=== PATIENT | male | born 1980 | race Hispanic/Latino ===

== ENCOUNTER 2024-06-05 19:13 | Observation (INO) | payer SELFPAY ==
[~2024-06-05] VITALS: Ht 180.3 cm; Wt 101.3 kg
[2024-06-05 19:22] VITALS: TEMP 98.6
[2024-06-05 19:46] LABS: BASOPHILS % 0.3 % (0.0-1.0); EOSINOPHILS # (AUTO) 0.3 (0.0-0.4); EOSINOPHILS % 3.9 % (0.0-6.0); HEMATOCRIT 43.4 % (38.2-49.6); HEMOGLOBIN 14.7 g/dL (14.0-18.0); LYMPHOCYTES # (AUTO) 1.9 (1.0-3.2); LYMPHOCYTES % 25.9 % (18.0-39.1); MEAN CORPUSCULAR HEMOGLOBIN 31.1 pg (28-32); MEAN CORPUSCULAR HGB CONC 33.9 g/dL (31-35); MEAN CORPUSCULAR VOLUME 91.9 fL (81-99); MONOCYTES # (AUTO) 0.5 (0.2-0.8); MONOCYTES % 6.1 % (4.4-11.3); NEUTROPHILS # (AUTO) 4.7 (2.1-6.9); NEUTROPHILS % 63.3 % (38.7-80.0); PLATELET COUNT 288 x10e3/uL (140-360); RED BLOOD COUNT 4.72 x10e6/uL (4.3-5.7); RED CELL DISTRIBUTION WIDTH 11.6 % (11.7-14.4); WHITE BLOOD COUNT 7.38 x10e3/uL (4.8-10.8)
[2024-06-05] MEDS: SODIUM CHLORIDE 0.9% 1000ML 1,000 ML IV ONE ×2 (19:47→20:18)
[2024-06-05 20:00] VITALS: BP 120/87; O2SAT 96
[2024-06-05 20:00] LABS: ALBUMIN 3.7 g/dL (3.5-5.0); ALBUMIN/GLOBULIN RATIO 0.9 (0.8-2.0); ANION GAP 16.3 mmol/L (8-16); BILIRUBIN,TOTAL 0.4 mg/dL (0.2-1.2); CALCIUM 9.2 mg/dL (8.4-10.2); CREATININE, SERUM 1.08 mg/dL (0.72-1.25); POTASSIUM 4.3 mmol/L (3.5-5.1)
[2024-06-05] MEDS ORDERED: IOPAMIDOL 370 MG/ML 100 ML INFUS..BTL INJ ONE (20:14)
[2024-06-05] MEDS ORDERED: SODIUM CHLORIDE 0.9% 1000ML 1,000 ML ONE (20:20)
[2024-06-05 20:50] LABS: BILIRUBIN,URINE NEGATIVE (NEGATIVE); CLARITY,URINE CLEAR (CLEAR); COLOR,URINE YELLOW (YELLOW); GLUCOSE, URINE 500 (NEGATIVE); KETONES,URINE 1+ (NEGATIVE); LEUKOCYTE ESTERASE ,URINE NEGATIVE (NEGATIVE); NITRITE,URINE NEGATIVE (NEGATIVE); PH,URINE 5.5 (5 - 7); PROTEIN,URINE DIPSTICK NEGATIVE (NEGATIVE); URINE UROBILINOGEN 0.2 mg/dL (0.2 - 1)
[2024-06-05 21:00] VITALS: PULSE 82; RESP 18
[2024-06-05] MEDS ORDERED: ONDANSETRON HCL INJ 2MG/ML 2ML 2 MG/ML VIAL IV PRN (21:30)
[2024-06-05] MEDS ORDERED: SODIUM CHLORIDE FLUSH 10 ML SYR INJ PRN (21:30)
[2024-06-05] MEDS: INSULIN REGULAR, HUMAN 100 UNIT/1 ML SQ ONE (21:39)
[2024-06-05] MEDS ORDERED: DEXTROSE 50% SYRINGE 50 ML IV PRN (22:15)
[2024-06-05 23:34] VITALS: BP 118/85; PULSE 75; RESP 18; TEMP 98.2; O2SAT 99
[2024-06-06] VITALS (9 sets, daily range): BP systolic 110–133; BP diastolic 71–96; PULSE 65–76; RESP 18–21; TEMP 97.5–98.5; O2SAT 99–100
[2024-06-06 05:49] LABS: BASOPHILS % 0.5 % (0.0-1.0); EOSINOPHILS # (AUTO) 0.3 (0.0-0.4); HEMATOCRIT 42.6 % (38.2-49.6); HEMOGLOBIN 13.9 g/dL (14.0-18.0); LYMPHOCYTES # (AUTO) 2.6 (1.0-3.2); LYMPHOCYTES % 33.5 % (18.0-39.1); MEAN CORPUSCULAR HEMOGLOBIN 30.5 pg (28-32); MEAN CORPUSCULAR HGB CONC 32.6 g/dL (31-35); MEAN CORPUSCULAR VOLUME 93.6 fL (81-99); MONOCYTES # (AUTO) 0.6 (0.2-0.8); MONOCYTES % 7.1 % (4.4-11.3); NEUTROPHILS # (AUTO) 4.2 (2.1-6.9); NEUTROPHILS % 54.4 % (38.7-80.0); PLATELET COUNT 253 x10e3/uL (140-360); RED BLOOD COUNT 4.55 x10e6/uL (4.3-5.7); RED CELL DISTRIBUTION WIDTH 11.4 % (11.7-14.4); WHITE BLOOD COUNT 7.72 x10e3/uL (4.8-10.8)
[2024-06-06 06:28] LABS: ALBUMIN 3.3 g/dL (3.5-5.0); ALBUMIN/GLOBULIN RATIO 0.8 (0.8-2.0); ANION GAP 14.5 mmol/L (8-16); BILIRUBIN,TOTAL 0.4 mg/dL (0.2-1.2); CALCIUM 9.1 mg/dL (8.4-10.2); CREATININE, SERUM 0.84 mg/dL (0.72-1.25); POTASSIUM 3.5 mmol/L (3.5-5.1); TOTAL PROTEIN 7.2 g/dL (6.5-8.1)
[2024-06-06] MEDS: INSULIN REGULAR, HUMAN 100 UNIT/1 ML SQ SCH (09:44)
[2024-06-06] MEDS: METFORMIN HCL 500 MG TAB PO SCH (12:11)
[2024-06-06] MEDS: GLIPIZIDE 5 MG TAB PO SCH (17:33)
[2024-06-07] VITALS: BP 113/74; PULSE 74; RESP 19; TEMP 97.6; O2SAT 100
[2024-06-07 04:52] VITALS: BP 128/87; PULSE 76; RESP 19; TEMP 97.9; O2SAT 99
[2024-06-07 05:22] LABS: BASOPHILS % 0.5 % (0.0-1.0); EOSINOPHILS # (AUTO) 0.2 (0.0-0.4); EOSINOPHILS % 2.7 % (0.0-6.0); HEMATOCRIT 41.2 % (38.2-49.6); HEMOGLOBIN 13.8 g/dL (14.0-18.0); LYMPHOCYTES # (AUTO) 2.4 (1.0-3.2); LYMPHOCYTES % 31.3 % (18.0-39.1); MEAN CORPUSCULAR HEMOGLOBIN 30.6 pg (28-32); MEAN CORPUSCULAR HGB CONC 33.5 g/dL (31-35); MEAN CORPUSCULAR VOLUME 91.4 fL (81-99); MONOCYTES # (AUTO) 0.4 (0.2-0.8); MONOCYTES % 5.7 % (4.4-11.3); NEUTROPHILS # (AUTO) 4.5 (2.1-6.9); NEUTROPHILS % 59.3 % (38.7-80.0); PLATELET COUNT 265 x10e3/uL (140-360); RED BLOOD COUNT 4.51 x10e6/uL (4.3-5.7); RED CELL DISTRIBUTION WIDTH 11.6 % (11.7-14.4); WHITE BLOOD COUNT 7.51 x10e3/uL (4.8-10.8)
[2024-06-07 05:50] LABS: ANION GAP 12.7 mmol/L (8-16); CALCIUM 8.9 mg/dL (8.4-10.2); CREATININE, SERUM 0.86 mg/dL (0.72-1.25); POTASSIUM 3.7 mmol/L (3.5-5.1)
[2024-06-07 08:00] VITALS: BP 118/80; PULSE 84; RESP 21; TEMP 97.9; O2SAT 99
[2024-06-07 09:06] VITALS: BP 118/80; PULSE 84; RESP 21; TEMP 97.9; O2SAT 99
[2024-06-07] MEDS ORDERED: GLIPIZIDE5 MG PO (10:46)
[2024-06-07] MEDS ORDERED: METFORMIN HCL500 MG PO (10:46)
[2024-06-07 12:00] VITALS: BP 108/82; PULSE 73; RESP 22; TEMP 98.9; O2SAT 99
== END 2024-06-07 13:00 | disposition home or self-care (01) ==
LOC: ER 19:23 → ERHOLD 21:21 → MED/SURG 22:45
PROVIDERS: ADMIT Internal Medicine; ATTEND Internal Medicine
DX: E11.65 Type 2 diabetes mellitus with hyperglycemia (principal); Z79.84 Long term (current) use of oral hypoglycemic drugs; R10.9 Unspecified abdominal pain
CPT/HCPCS: 36415 ×3; 74177; 80048; 80053 ×2; 81001; 82948 ×3; 83036; 83690; 85025 ×3; 93005; 96372; 99284; G0378 ×3; J7030; Q9967

== ENCOUNTER 2024-06-20 17:26 | Emergency (ER) | payer OTHER ==
[~2024-06-20] VITALS: Ht 180.3 cm; Wt 99.8 kg
[~2024-06-20 17:26] MED LIST: GLIPIZIDE5 MG PO; METFORMIN HCL500 MG PO
[2024-06-20 18:00] VITALS: PULSE 94; RESP 16; TEMP 99.2; O2SAT 100
[2024-06-20] MEDS ORDERED: ACETAMINOPHEN-1 EAC4 PO (19:33)
[2024-06-20] MEDS ORDERED: CEPHALEXIN500 MG PO (19:33)
[2024-06-20] MEDS ORDERED: BACTRIM DS TAB1 EACH PO (19:33)
[2024-06-20] MEDS: LIDOCAINE 1% 10 ML MULTIDOSE VIAL IJ ONE (19:59)
== END 2024-06-20 20:07 | disposition home or self-care (01) ==
LOC: ER 18:05
DX: R50.9 Fever, unspecified (principal); L02.212 Cutaneous abscess of back [any part, except buttock and flank]; E11.9 Type 2 diabetes mellitus without complications
CPT/HCPCS: 10060; 99283; J2003